=== PATIENT | female | born 1975 | race Caucasian/White ===

== ENCOUNTER 2023-04-05 17:50 | Emergency (ER) | payer MEDICAID ==
[~2023-04-05] VITALS: Ht 162.6 cm; Wt 68.0 kg
[2023-04-05 17:55] VITALS: BP 131/67
--- NOTE | 2023-04-05 19:01 | NUR ---
US BY DR YANES AT BEDSIDE
--- NOTE | 2023-04-05 19:05 | NUR ---
47Y F PRESENTS W/RT BUTTOCK ABSCESS X 1DAY, DENIES INJURY, SAFETY MAINTAINED. HX: DENIES NKA
[2023-04-05] MEDS ORDERED: LIDOCAINE 1% 500 MG/ 50 ML VIAL INJ ONE (19:10)
[2023-04-05] MEDS ORDERED: SULF-59 PO (19:38)
--- NOTE | 2023-04-05 20:12 | NUR ---
Patient discharged with v/s stable. Written and verbal after care instructions given and explained. Patient alert, oriented and verbalized understanding of instructions. Ambulatory with steady gait. All questions addressed prior to discharge. ID band removed. Patient advised to follow up with PMD. Rx of Bactrim Ds sent to preferred pharmacy. Patient educated on indication of medication including possible reaction and side effects. Opportunity to ask questions provided and answered.
[2023-04-05 20:13] VITALS: BP 131/70
== END 2023-04-05 20:12 | disposition home or self-care (01) ==
LOC: MED 17:50
DX: L02.415 Cutaneous abscess of right lower limb (principal)
CPT/HCPCS: 10060; 99284; J2001

== ENCOUNTER 2023-04-08 09:42 | Emergency (ER) | payer MEDICAID ==
[~2023-04-08] VITALS: Ht 152.4 cm; Wt 77.1 kg
[~2023-04-08 09:42] MED LIST: SULF-59 PO
[2023-04-08 10:02] VITALS: BP 101/74
--- NOTE | 2023-04-08 16:40 | NUR ---
PA GAVE PT VERVAL DCI, PT LEFT WITHOUT RECEIVING PRINTED INSTRUCTION
--- NOTE | 2023-04-08 16:42 | NUR ---
Patient discharged with v/s stable. Written and verbal after care instructions given and explained. Patient verbalized understanding. with to home. All questions addressed prior to discharge. Advised to follow up with PMD.
== END 2023-04-08 16:38 | disposition home or self-care (01) ==
LOC: MED 09:42
DX: Z48.00 Encounter for change or removal of nonsurgical wound dressing (principal); Z79.2 Long term (current) use of antibiotics
CPT/HCPCS: 99281